=== PATIENT | female | born 1965 | race Caucasian/White ===

== ENCOUNTER 2016-05-22 11:47 | Inpatient (IN) | payer MEDICAID ==
[~2016-05-22] VITALS: Ht 162.6 cm; Wt 94.9 kg
[2016-05-22 14:24] LABS: BASOPHILS % (AUTO) 0.9 % (0.0-2.0); EOSINOPHILS % (AUTO) 2.1 % (1.0-6.0); HEMATOCRIT 45.1 % (36-46); HEMOGLOBIN 14.8 g/dL (12.0-16.0); LYMPHOCYTES # (AUTO) 2.4 K/uL (1.0-4.8); MEAN CORPUSCULAR HEMOGLOBIN 29.2 pg (26.0-34.0); MEAN CORPUSCULAR HGB CONC 32.7 G/dL (31.0-37.0); MEAN CORPUSCULAR VOLUME 89 fL (80-100); MONOCYTES # (AUTO) 0.5 K/uL (0.1-1.0); MONOCYTES % (AUTO) 5.6 % (2.0-9.0); NEUTROPHILS # (AUTO) 5.8 K/uL (1.8-7.7); NEUTROPHILS % (AUTO) 64.4 % (40.0-70.0); PLATELET COUNT (AUTO) 285 K/uL (150-450); RED BLOOD CELL COUNT(AUTO) 5.06 MIL/uL (4.00-5.20); RED CELL DISTRIBUTION WIDTH 15.5 % (11.5-14.5)
[2016-05-22 14:37] LABS: ANION GAP 10 mmol/L (8-16); CALCIUM, TOTAL 8.5 mg/dL (8.8-10.5); CARBON DIOXIDE 25 mmol/L (22-29); CHLORIDE 102 mmol/L (98-107); CREATININE 0.67 mg/dL (0.60-1.30); GLOMERULAR FILTR. RATE CALC > 60 mL/min (>60); POTASSIUM 3.9 mmol/L (3.5-5.1); SODIUM SERUM 137 mmol/L (136-145); UREA NITROGEN, BLOOD 11 mg/dL (7-18)
[2016-05-22 14:45] LABS: ALANINE AMINOTRANSFERASE 23 U/L (12-78); ALBUMIN 3.7 g/dL (3.4-5.0); ASPARTATE AMINOTRANSFERASE 24 U/L (15-37); BILIRUBIN,TOTAL 0.3 mg/dL (0.1-1.0); TOTAL PROTEIN, SERUM 6.7 g/dL (6.4-8.2)
[2016-05-22] MEDS ORDERED: LORazepam 2 MG TABLET PO ONE (14:45)
[2016-05-22] MEDS ORDERED: HALOPERIDOL 5 MG TABLET PO ONE (14:45)
[2016-05-22] MEDS ORDERED: ACETAMINOPHEN 325 MG TABLET PO ONE (15:00)
[2016-05-22] MEDS ORDERED: ZOLPIDEM TARTRATE 10 MG TABLET PO PRN (15:45)
[2016-05-22] MEDS ORDERED: HALOPERIDOL 5 MG TABLET PO PRN (15:45)
[2016-05-22 18:53] VITALS: BP 139/94
[2016-05-22] MEDS ORDERED: ACETAMINOPHEN 325 MG TABLET PO PRN (20:00)
[2016-05-22] MEDS ORDERED: IBUPROFEN 400 MG TABLET PO PRN (20:00)
[2016-05-22] MEDS: OLANZapine 5 MG TABLET PO SCH (21:00)
[2016-05-23 08:00] VITALS: BP 162/98
[2016-05-23] MEDS ORDERED: NICOTINE 7 MG/24 HOUR PATCH TD SCH (09:00)
[2016-05-23] MEDS ORDERED: FLUoxetine HCL 20 MG CAPSULE PO SCH (09:00)
[2016-05-23] MEDS: LORazepam 2 MG TABLET PO PRN (09:21)
[2016-05-23] MEDS: NICOTINE 14 MG/24 HOUR PATCH TD SCH (09:43)
[2016-05-23 11:01] VITALS: BP 152/86
[2016-05-23] MEDS: AmLODIPine BESYLATE 5 MG TABLET PO SCH (16:23)
[2016-05-23 18:05] VITALS: BP 137/74
[2016-05-23] MEDS: OLANZapine 5 MG TABLET PO SCH (20:25)
[2016-05-24] MEDS: FLUoxetine HCL 20 MG CAPSULE PO SCH (10:01)
[2016-05-24] MEDS: AmLODIPine BESYLATE 5 MG TABLET PO SCH (10:01)
[2016-05-24] MEDS: NICOTINE 14 MG/24 HOUR PATCH TD SCH (10:11)
[2016-05-24] MEDS: LORazepam 2 MG TABLET PO PRN (10:12)
[2016-05-24 10:35] VITALS: BP 135/80
[2016-05-24] MEDS: TraMADol HCL 50 MG TABLET PO PRN (10:40)
[2016-05-24 16:32] VITALS: BP 129/85
[2016-05-24] MEDS: OLANZapine 5 MG TABLET PO SCH (20:13)
[2016-05-25 08:10] VITALS: BP 130/70
[2016-05-25] MEDS: AmLODIPine BESYLATE 5 MG TABLET PO SCH (08:10)
[2016-05-25] MEDS: FLUoxetine HCL 20 MG CAPSULE PO SCH (08:10)
[2016-05-25] MEDS: TraMADol HCL 50 MG TABLET PO PRN ×2 (08:11→17:08)
[2016-05-25] MEDS: NICOTINE 14 MG/24 HOUR PATCH TD SCH (08:12)
[2016-05-25 17:08] VITALS: BP 145/87
[2016-05-25] MEDS: OLANZapine 5 MG TABLET PO SCH (21:27)
[2016-05-26] MEDS: NICOTINE 14 MG/24 HOUR PATCH TD SCH (09:22)
[2016-05-26 09:23] VITALS: BP 134/94
[2016-05-26] MEDS: TraMADol HCL 50 MG TABLET PO PRN (09:23)
[2016-05-26] MEDS: AmLODIPine BESYLATE 5 MG TABLET PO SCH (09:24)
[2016-05-26] MEDS: FLUoxetine HCL 20 MG CAPSULE PO SCH (09:24)
[2016-05-26] MEDS ORDERED: OLAN5TAB2 PO (11:03)
[2016-05-26] MEDS ORDERED: FLUO-191 PO (11:03)
[2016-05-26] MEDS ORDERED: AMLO-511 PO (11:05)
== END 2016-05-26 14:38 | disposition home or self-care (01) | DRG 751 ==
LOC: EMS 11:49 → 3EI 17:26
PROVIDERS: ADMIT Psychiatry & Neurology Psychiatry; ATTEND Psychiatry & Neurology Psychiatry
DX: F33.3 Major depressive disorder, recurrent, severe with psychotic symptoms (principal); R45.851 Suicidal ideations; I10 Essential (primary) hypertension; E78.00 Pure hypercholesterolemia, unspecified; M19.90 Unspecified osteoarthritis, unspecified site; F15.10 Other stimulant abuse, uncomplicated; Z96.659 Presence of unspecified artificial knee joint; Z59.0 Homelessness; Z79.899 Other long term (current) drug therapy; Z87.891 Personal history of nicotine dependence; Z91.5 Personal history of self-harm; Z98.890 Other specified postprocedural states; Z88.0 Allergy status to penicillin; Z72.89 Other problems related to lifestyle; Z71.51 Drug abuse counseling and surveillance of drug abuser
CPT/HCPCS: 99285; G0480